=== PATIENT | male | born 1945 | race African-American/Black ===

== ENCOUNTER 2022-09-02 11:23 | Inpatient (IN) | payer MEDICARE, MEDICAID, SELFPAY ==
--- NOTE | ~2022-09-02 | MR_ITS ---
EXAMINATION: MRI BRAIN WITHOUT CONTRAST CLINICAL INFORMATION: Cerebrovascular accident. COMPARISON: CT angiogram of the head and neck 09/02/2022. TECHNIQUE: Multiplanar MR imaging of the brain was performed without contrast. FINDINGS: There is a small focus of restricted diffusion involving the left cerebral peduncle best visualized on axial image 13 of 29 series 4. In addition to this acute finding there are numerous foci of T2 FLAIR signal hyperintensity primarily involving the periventricular white matter that most likely represent a chronic manifestation of small vessel ischemia. A few punctate foci of magnetic susceptibility artifact are visualized near the cortical lees matter of the left parietal lobe that represent chronic microhemorrhages. Intracranial vascular flow voids are grossly maintained. There is no mastoid or middle ear effusion. Mild paranasal sinus mucosal thickening within ethmoid air cells. A chronic deformity of the right parietal bone near the vertex is redemonstrated. Globes and orbits are symmetric. MR/MR head/brain wo con IMPRESSION: There is a small acute lacunar infarct involving the left cerebral peduncle. This finding is superimposed upon numerous chronic small vessel ischemic changes primarily involving the periventricular white matter.
--- NOTE | ~2022-09-02 | CT_ITS ---
EXAMINATION: CT angio head neck stroke CLINICAL INFORMATION: One-day of intermittent slurring of speech. COMPARISON: CT head 09/02/2022. TECHNIQUE: Tape Librarian images were obtained. A CT angiogram of the head and neck was performed in the arterial phase after the intravenous administration of 50 mL Omnipaque 350. Pre and delayed postcontrast images of the head were also obtained. 3D images were processed on an independent workstation under concurrent supervision. Arterial stenoses are measured in accordance with NASCET criteria or similar method if applicable. This CT examination was performed using dose optimization techniques as appropriate, including one or more of the following: Automated exposure control, iterative reconstruction, and adjustment of technique factors (mA and/or kVp) according to patient size (this includes techniques or standardized protocols for targeted exams where dose is matched to indication/reason for exam). Fleischner Society criteria for the followup of incidental pulmonary nodules was implemented if appropriate. Total exam dose-length product 1568 mGy-cm FINDINGS: Head: There is no acute intracranial hemorrhage or abnormal extra-axial collection. Postcontrast images reveal no abnormal intracranial mass or enhancement. No intracranial mass effect or hydrocephalus. There are scattered nonspecific foci of hypoattenuation within the periventricular white matter. No evidence of acute territorial infarct. There are chronic postsurgical changes within the right scalp near the vertex and some well marginated lytic or erosive changes within the calvarium. These findings have remained stable when compared to a CT scan of the head from 07/01/2015. There is no mastoid or middle ear effusion. No active paranasal sinus disease. CT angiogram neck: Scattered atheromatous calcification involves the aortic arch apex. Origins of the major aortic branches are widely patent. Common carotid arteries and carotid bifurcations are normal. No stenosis of the extracranial internal carotid arteries. The cervical segments of the vertebral arteries as well as their origins are patent. CT angiogram head: There is an age indeterminate occlusion within the left P2 segment. There is however reconstitution of contrast filling the distal branches of left posterior cerebral artery. There is mild to moderate narrowing involving the M1 segments of both middle cerebral arteries. Anterior, middle, and posterior cerebral artery complexes are otherwise unremarkable. Intracranial internal carotid arteries are patent. Intradural vertebral artery segments and basilar artery are patent. Other: Soft tissues of the neck including the thyroid gland are normal. No pathologically enlarged cervical lymph nodes. Lung apices are clear. There is no acute osseous finding. CT/CT angio head neck stroke IMPRESSION: There is an age indeterminate occlusion within the left P2 segment. There is also mild to moderate narrowing involving the M1 segments of both middle cerebral arteries, greater on the right. No stenosis of the cervical carotid or vertebral arteries. There are scattered chronic small vessel ischemic changes within the periventricular white matter. No evidence of acute territorial infarct or hemorrhage. No abnormal intracranial mass or enhancement. Of note there are chronic postsurgical changes within the scalp near the vertex and some well marginated lytic or erosive changes within the calvarium. These findings have remained grossly stable when compared to prior CT imaging from 07/01/2015. Correlation with clinical examination is recommended with regard to this finding. This critical result was discussed with Dr. Martel at 1:36 PM on 09/02/2022 and it was ascertained that the content and urgency of the report was understood at the time of direct communication.
--- NOTE | ~2022-09-02 | CT_ITS ---
EXAMINATION: CT HEAD WITHOUT CONTRAST (STROKE PROTOCOL) CLINICAL INFORMATION: Stroke protocol. Slurred speech. COMPARISON: Previous head CT from the June 2015. TECHNIQUE: Contiguous axial imaging was performed from the skull base to vertex without intravenous administration of contrast. This CT examination was performed using dose optimization techniques as appropriate, variously including the following: *Automated exposure control *Adjustment of mA and/or kV according to patient size (this includes techniques or standardized protocols for targeted exams where dose is matched to indication/reason for exam; i.e. extremities or head) *Use of iterative reconstruction technique DLP: 700 mGy-cm FINDINGS: There is no evidence of an extra-axial collection. There is no evidence of intra-axial or extra-axial hemorrhage. The ventricles and extra-axial CSF spaces are appropriate. Rincon-white matter differentiation is normal. No mass, mass effect or infarct. No skull fracture. There is a defect in the posterior parasagittal parietal bone and possibly some involvement of the posterior left parietal bone. This does not appear appreciably changed from 2016 and may represent postsurgical change. There is adjacent increased soft tissue seen in this region. This may be slightly increased from 2016 exam. Clinical correlation recommended. There are small areas of increased attenuation in the subcutaneous fat of the scalp for example overlying the more anterior right parietal bone axial image 30 and left posterior parietal bone axial image 30. This does not appear appreciably changed. Visualized paranasal bases, mastoid air cells and middle ears are clear. CT/CT head for stroke IMPRESSION: No acute intracranial findings. 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 There is increased overlying soft tissue seen in this region which may be slightly increased from previous exam. Question postsurgical change versus destructive bone process. Correlation with clinical history recommended. This critical result was discussed with Dr. Martel at 1208 hours on 09/02/2022. It was ascertained that the content and urgency of the report was understood at the time of direct communication.
--- NOTE | 2022-09-02 11:33 | ECG_ITS ---
Test Reason : ?STROKE Blood Pressure : / mmHG Vent. Rate : 073 BPM Atrial Rate : 085 BPM P-R Int : 224 ms QRS Dur : 090 ms QT Int : 378 ms P-R-T Axes : 000 -05 029 degrees QTc Int : 416 ms Sinus rhythm with 1st degree A-V block with Blocked Premature atrial complexes Nonspecific T wave abnormality Abnormal ECG No previous ECGs available Referred By: Too Martel Electronically Signed By:Burke Hernandez
[2022-09-02 11:36] LABS: Glucose, Whole Blood 346 mg/dL (60-115)
[2022-09-02 11:38] VITALS: BP 169/119; BP 170/113; PULSE 70; PULSE 75; RESP 16; TEMP 36.9; O2SAT 97; O2SAT 98; BMI 31.4
--- NOTE | 2022-09-02 11:40 | ED_ITS ---
HPI - Neuro Symptoms/Deficit General Chief Complaint: Neuro Symptoms/Deficit Stated Complaint: SLURRED SPEECH R SIDE WEAKNESS Time Seen by Provider: 09/02/22 11:33 Source: patient, family and EMS Mode of arrival: EMS Limitations: no limitations History of Present Illness HPI Narrative: Patient was noticed to have slurred speech yesterday but had a few drinks of alcohol, today had a few moments of right sided arm weakness and slurred speech which has all resolved Onset (ago): day(s) Timing confirmed by: spouse Location: speech and right arm Quality: weak Related Data Allergies Allergy/AdvReac Type Severity Reaction Status Date / Time No Known Allergies Allergy Unverified 12/11/19 15:25 [No Known Allergies*] Review of Systems Review of Systems: Yes all other systems are reviewed and are negative Neurologic: Denies Sensory deficit (Neuro) Comments: right sided weakness and slurred speech [facility] Social History Social History Advance Directives: No Advance Directives Information Provided: No Physical Exam Vital Signs: Vital Signs: Last Vital Signs Temp 97.8 F 09/02/22 14:08 Pulse 66 09/02/22 14:08 Resp 17 09/02/22 14:08 BP 168/97 H 09/02/22 14:08 Pulse Ox 97 09/02/22 14:08 O2 Del Method Room Air 09/02/22 14:08 BMI result Body Mass Index 31.4 Const: General: healthy appearing Nutritional Appearance: average body habitus Orientation/consciousness: oriented to person and patient oriented x3 Limitations: no limitations HEENT: Head: Yes normal to inspection Ears: external ears normal General nose exam: Normal external nose present Mouth: Normal oral and palatal mucosa present and oropharynx normal Throat: Yes posterior oropharynx normal Eyes: General: appearance normal, both eyes and all related structures Neck: Other: supple Neck: Yes normal visual inspection Chest: Chest palpation & inspection: normal inspection of the chest Resp: Auscultation: clear to auscultation bilaterally Cardio: Jugular venous distension: no JVD Rate: regular rate Rhythm: regular rhythm Heart sounds: S1 normal heart sound present and S2 normal heart sound present GI: Inspection: Yes normal to inspection Palpation (GI): Soft to palpation, nontender and No hepatosplenomegaly present Auscultation: normal bowel sounds : General: Yes no CVA tenderness Back/Spine/Pelvis: Back: no CVA tenderness Skin: General skin exam: no rashes or lesions noted Neuro: General: oriented to person and patient oriented x3 Cranial nerves: Yes CN's II-XII intact bilaterally Motor exam (neuro): 5/5 motor strength present throughout Sensory Exam: No Sensory deficit (Neuro) Extrem: General: Yes normal to inspection Psych: Appearance: grossly normal Course Reevaluation(s) Reevaluation #1: Patient with NIH stroke scale of 0, 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 Collazo and admit Time: 13:46 Reevaluation #2: I spent 40 minutes of critical care, with interventions, assessments, speaking to patient, consultants, and family. Time: 13:46 Medications Administered Discontinued Medications Generic Name Dose Route Start Last Admin Trade Name Freq PRN Reason Stop Dose Admin Insulin Human Lispro 10 unit 09/02/22 12:48 09/02/22 13:07 Insulin Lispro 100 Unit/Ml 3 Ml Vial SUBCUT 09/02/22 12:49 10 unit ONCE ONE Administration Iohexol 100 ml 09/02/22 13:14 09/02/22 13:14 Iohexol 350 Mg/Ml 100 Ml Infus..Btl IV 09/02/22 13:15 70 ml ONCE ONE Administration Medical Decision Making Differential Diagnosis Differential Diagnoses: The differential diagnosis associated with the presentation includes (CVA, cerebral bleed, brain tumor were all considered) Admission/Observation Consideration of admission/observation: Escalation of care including admission/observation considered (upon arrival this 77 yo male DM, HTN who presents with slurred speach, right arm weakness was considered for admission) Consult Healthcare Provider Management of the patient was discussed with: Hospitalist and Technical Manager (Neuro stroke) Lab Data MDM Lab Attestation statement: I reviewed the patient's lab results. 09/02/22 11:50 09/02/22 11:50 Labs: Lab Results 09/02/22 09/02/22 09/02/22 Range/Units 11:32 11:50 11:50 WBC 5.7 (4.8-10.8) X10*3/uL RBC 5.29 (4.60-5.80) X10*6/uL Hgb 15.9 (14.0-18.0) g/dl Hct 45.2 (42.0-52.0) % MCV 85.4 (80.0-98.0) fL MCH 30.1 (27.0-33.0) pg MCHC 35.2 (31.0-36.0) g/dl RDW 12.0 (11.0-16.0) % Plt Count 163 (160-400) X10*3/uL MPV 11.7 (9.4-12.4) fL Immature Gran % (Auto) 0.4 (0.0-0.4) % Neut % (Auto) 67.6 (45-73) % Lymph % (Auto) 24.5 (20-40) % [place] % (Auto) 5.4 (2-11) % Eos % (Auto) 1.6 (0-4) % Baso % (Auto) 0.5 (0-2) % Lymph # (Auto) 1.4 (1.2-4.9) X10*3/uL [place] # (Auto) 0.3 (0.1-1.2) X10*3/uL Eos # (Auto) 0.1 (0.0-0.4) X10*3/uL Baso # (Auto) 0.0 (0.0-0.2) X10*3/uL Abs Immat Gran (auto) 0.02 (0.00-0.03) X10*3/uL Absolute Neuts (auto) 3.9 (2.0-8.3) x10*3/uL Absolute Nucleated RBC 0.000 (0.0-0.012) X10*3/uL Nucleated RBC % (auto) 0.0 (0.0-0.2) /100WBC Sodium 138 (135-145) mmol/L Potassium 3.8 (3.3-5.1) mmol/L Chloride 103 (96-108) mmol/L Carbon Dioxide 25 (22-29) mmol/L Anion Gap 14 (12-20) BUN 11 (9-16) mg/dL Creatinine 1.07 (0.5-1.4) mg/dL Estim Creat Clear Calc 72.5 Estimated GFR > 60 POC Glucose 346 H (60-115) mg/dL Random Glucose 343 H (60-115) mg/dL Estimat Average Glucose mg/dL Hemoglobin A1c % % Calcium 9.3 (8.4-10.2) mg/dL Troponin I High Sens (<3.5-35.0) ng/L Ethyl Alcohol < 10 mg/dL 09/02/22 09/02/22 09/02/22 Range/Units 11:50 11:50 14:21 WBC (4.8-10.8) X10*3/uL RBC (4.60-5.80) X10*6/uL Hgb (14.0-18.0) g/dl Hct (42.0-52.0) % MCV (80.0-98.0) fL MCH (27.0-33.0) pg MCHC (31.0-36.0) g/dl RDW (11.0-16.0) % Plt Count (160-400) X10*3/uL MPV (9.4-12.4) fL Immature Gran % (Auto) (0.0-0.4) % Neut % (Auto) (45-73) % Lymph % (Auto) (20-40) % [place] % (Auto) (2-11) % Eos % (Auto) (0-4) % Baso % (Auto) (0-2) % Lymph # (Auto) (1.2-4.9) X10*3/uL [place] # (Auto) (0.1-1.2) X10*3/uL Eos # (Auto) (0.0-0.4) X10*3/uL Baso # (Auto) (0.0-0.2) X10*3/uL Abs Immat Gran (auto) (0.00-0.03) X10*3/uL Absolute Neuts (auto) (2.0-8.3) x10*3/uL Absolute Nucleated RBC (0.0-0.012) X10*3/uL Nucleated RBC % (auto) (0.0-0.2) /100WBC Sodium (135-145) mmol/L Potassium (3.3-5.1) mmol/L Chloride (96-108) mmol/L Carbon Dioxide (22-29) mmol/L Anion Gap (12-20) BUN (9-16) mg/dL Creatinine (0.5-1.4) mg/dL Estim Creat Clear Calc Estimated GFR POC Glucose 249 H (60-115) mg/dL Random Glucose (60-115) mg/dL Estimat Average Glucose 312 mg/dL Hemoglobin A1c % 12.5 % Calcium (8.4-10.2) mg/dL Troponin I High Sens < 2.7 (<3.5-35.0) ng/L Ethyl Alcohol mg/dL Independent Interpretation I performed an independent interpretation of an: EKG and CT Scan (brain: no bl eed) Interpretation: sinus 75 with APC, no st or twave changes Radiology Impression Discussion of test interpretation with radiology: I discussed test interpretation with the radiologist Independent Historian Clinical information obtained from an independent historian. History obtained from or confirmed by: Spouse and EMS Chronic Conditions Patient?s care impacted by: Diabetes and Hypertension NIH Stroke Scale Internal: Initial- Upon Arrival Level of Consciousness: Alert Level of Consciousness Questions: Answers both questions correctly Level of Consciousness Commands: Performs both tasks correctly Best Gaze: Normal Visual: No visual loss Facial Palsy: Normal Motor Arm (Right): No drift Motor Arm (Left): No drift Motor Leg (Right): No drift Motor Leg (Left): No drift Limb Ataxia: Absent Sensory: Normal Best Language: No aphasia Dysarthia: Normal Extinction and Inattention: No abnormality Score: 0 Discharge Plan Discharge Clinical Impression: Transient cerebral ischemia Patient Disposition: Admitted As Inpatient
[2022-09-02 12:06] LABS: MANUAL DIFF FLAG NO
[2022-09-02 12:20] LABS: Basophils Percent Auto 0.5 % (0-2); Eosinophils Absolute Auto 0.1 X10*3/uL (0.0-0.4); Eosinophils Percent Auto 1.6 % (0-4); Hematocrit 45.2 % (42.0-52.0); Hemoglobin 15.9 g/dl (14.0-18.0); Imm Gran Abs Auto 0.02 X10*3/uL (0.00-0.03); Imm Gran Pct Auto 0.4 % (0.0-0.4); Lymphocytes Absolute Auto 1.4 X10*3/uL (1.2-4.9); Lymphocytes Percent Auto 24.5 % (20-40); Mean Corpuscular HGB Conc 35.2 g/dl (31.0-36.0); Mean Corpuscular Hemoglobin 30.1 pg (27.0-33.0); Mean Corpuscular Volume 85.4 fL (80.0-98.0); Mean Platelet Volume 11.7 fL (9.4-12.4); Monocytes Absolute Auto 0.3 X10*3/uL (0.1-1.2); Monocytes Percent Auto 5.4 % (2-11); Neutrophils Absolute Auto 3.9 x10*3/uL (2.0-8.3); Neutrophils Percent Auto 67.6 % (45-73); Platelet Count 163 X10*3/uL (160-400); Red Blood Count 5.29 X10*6/uL (4.60-5.80); White Blood Count 5.7 X10*3/uL (4.8-10.8)
[2022-09-02 12:32] LABS: Anion Gap 14 (12-20); Blood Urea Nitrogen 11 mg/dL (9-16); Calcium 9.3 mg/dL (8.4-10.2); Carbon Dioxide 25 mmol/L (22-29); Chloride 103 mmol/L (96-108); Creatinine Clr Calc Pharmacy 72.5; Estimated Glomerular Filt Rate > 60; Ethanol < 10 mg/dL; Glucose Random 343 mg/dL (60-115); Potassium 3.8 mmol/L (3.3-5.1); Sodium 138 mmol/L (135-145)
[2022-09-02 12:42] VITALS: BP 163/97
[2022-09-02 12:56] LABS: Troponin-I High Sensitivity < 2.7 ng/L (<3.5-35.0)
[2022-09-02] MEDS: Insulin Lispro 100 UNIT/ML 3 ML VIAL 10 UNIT SUBCUT (13:07)
[2022-09-02] MEDS: iohexoL 350 MG/ML 100 ML INFUS..BTL IV (13:14)
[2022-09-02 14:08] VITALS: BP 168/97; PULSE 66; RESP 17; TEMP 36.6; O2SAT 97
[2022-09-02 14:25] LABS: Glucose, Whole Blood 249 mg/dL (60-115)
[2022-09-02 15:06] LABS: Estimated Average Glucose 312 mg/dL; Hemoglobin A1c % 12.5 %
--- NOTE | 2022-09-02 15:22 | P.HPHOSP_ITS ---
History of Present Illness Date of Service: 09/02/22 Attending physician on admission: [facility] Chief Complaint: slurred speech 77-year-old male with history of uncontrolled type 2 diabetes noncompliant with medications, hypertension, and who is a current some day smoker presents to the ED earlier today for evaluation as stroke-like symptoms. Reports yesterday was noted to have an episode of slurred speech that he feels resolved. In speaking with his family who are present on exam they feel he has had intermittent right sided facial droop and slurred speech for about a month. This morning symptoms recurred with right upper extremity weakness that lasted for several minutes before resolving [place] and again experienced right-sided facial droop and slurred speech which persists in the ER. He has been noncompliant with follow- up with his PCP and stops taking the metformin and insulin he was previously prescribed. He is unsure of what his last A1c was but states his glucose levels have been between 300-400. He also tells me he smokes cigarettes on the weekend when consuming alcohol, he is a social drinker, states 1 pack of cigarettes will last him 1-2 weeks. He does not use any illicit drugs. On arrival, patient hypertensive to 170/113, vital signs otherwise stable. Hematology studies are unremarkable. Renal function is normal, electrolyte levels are normal. Glucose on arrival 343, given 10 units Humalog with improvement in glucose to 249. Hemoglobin A1c added on and is 12.5%. Head CT is negative for any acute intracranial findings but shows stable bone loss of the right posterior parasagittal parietal bone with increased overlying soft tissue seen in the region slightly increased from prior exam possibly related to postsurgical change versus destructive bony process. Head/neck CTA shows an age-indeterminate occlusion within the left P2 segment as well as a [id number] narrowing involving the M1 segments of both middle cerebral arteries greater on the right side. No stenosis of the carotid or vertebral arteries. Other stable chronic findings. Review of Systems Review of Systems: General: No fevers, malaise, unintentional weight loss HEENT: No blurred vision, diplopia. No sore throat, nasal congestion, rhinorrhea, sinus pain, ear pain Cardiovascular: No chest pain, palpitations, or leg edema Respiratory: No shortness of breath, wheezing, cough GI: No abdominal pain, nausea, vomiting, diarrhea, constipation, melena, hematochezia : No dysuria, hematuria, increased urinary frequency, decreased urinary output MSK: No myalgia, back pain Neuro: No headaches, paresthesias. +right facial droop, +slurred speech, +RUE weakness Skin: No rashes or lesions [facility] Medical History (Updated 09/02/22 @ 15:49 by DL Krause) Acute CVA (cerebrovascular accident) Current smoker on some days HTN (hypertension) Type 2 diabetes mellitus Social History Alcohol intake: current Alcohol intake frequency: a few times a week Patient Tobacco Use Status: Current someday Tobacco user Smoked in Last 30 Days: Yes Use of substances other than those prescribed or required for medical reasons: No Advance Directives: No Advance Directives Information Provided: No Meds Allergies Allergy/AdvReac Type Severity Reaction Status Date / Time No Known Allergies Allergy Unverified 12/11/19 15:25 [No Known Allergies*] Active Medications: Current Medications Acetaminophen (Acetaminophen 325 Mg Tablet) 650 mg PO Q6H PRN PRN Reason: Pain, Mild (Pain Scale 1-3) Aspirin (Aspirin 325 Mg Tablet) 325 mg PO DAILY [facility] Atorvastatin Calcium (Atorvastatin Calcium 80 Mg Tablet) 80 mg PO DAILY [facility] Docusate Sodium (Docusate Sodium 100 Mg Capsule) 100 mg PO DAILY PRN PRN Reason: Constipation Enoxaparin Sodium (Enoxaparin Sodium 40 Mg/0.4 Ml Syringe) 40 mg SUBCUT Q24H [facility] Glucose (Glucose Gel 15 Gm Gel..Gram.) 15 gm PO Q15M PRN; Protocol PRN Reason: per Hypoglycemia Standing Ord. Dextrose (D10) 250 mls @ 750 mls/hr IV Q15M PRN; Protocol PRN Reason: per Hypoglycemia Standing Ord. Insulin Human Lispro (Insulin Lispro 100 Unit/Ml 3 Ml Vial) 0 unit SUBCUT QID [facility]; Protocol Ondansetron HCl (Ondansetron Hcl 4 Mg/2 Ml Vial) 4 mg IVPUSH Q8H PRN PRN Reason: Nausea and Vomiting Sodium Chloride (0.9 % Sodium Chloride Flush 3 Ml Syringe) 3 ml IVFLUSH QSHIFT [facility] Home Medications Medication Instructions Recorded Confirmed Last Taken Type aspirin 81 mg tablet,delayed 81 mg PO DAILY 09/02/22 09/02/22 Unknown History release Physical Exam Vital Signs and Narrative: Vital Signs: Last Vital Signs Temp 97.8 F 09/02/22 14:08 Pulse 66 09/02/22 14:08 Resp 17 09/02/22 14:08 BP 168/97 H 09/02/22 14:08 Pulse Ox 97 09/02/22 14:08 O2 Del Method Room Air 09/02/22 14:08 BMI result Body Mass Index 31.4 Constitutional - Awake and Alert, No apparent distress Eyes - PERRLA, EOMI Cardiovascular - S1S2, RRR, No edema Respiratory - Normal lung expansion, Normal respiratory effort, No respiratory distress, CTA bilaterally Gastrointestinal - NT / ND; +BS; No rebound or guarding Extremities - no calf tenderness bilaterally, no swelling Skin - Warm/Dry Neurological - Alert & oriented x3, slight loss of right naso-labial fold with slurred speech, otherwise CN II-XII in tact, 5/5 strength BUE and BLE. Finger to nose testing normal Psychological - Appropriate affect Results Labs 09/02/22 11:50 09/02/22 11:50 Labs: Laboratory Results - last 24 hr 09/02/22 09/02/22 09/02/22 11:32 11:50 11:50 MCV 85.4 MCH 30.1 MCHC 35.2 RDW 12.0 Plt Count 163 MPV 11.7 Immature Gran % (Auto) 0.4 Neut % (Auto) 67.6 Lymph % (Auto) 24.5 [place] % (Auto) 5.4 Eos % (Auto) 1.6 Baso % (Auto) 0.5 Lymph # (Auto) 1.4 [place] # (Auto) 0.3 Eos # (Auto) 0.1 Baso # (Auto) 0.0 Abs Immat Gran (auto) 0.02 Absolute Neuts (auto) 3.9 Absolute Nucleated RBC 0.000 Nucleated RBC % (auto) 0.0 Anion Gap 14 Estim Creat Clear Calc 72.5 Estimated GFR > 60 POC Glucose 346 H Random Glucose 343 H Estimat Average Glucose Hemoglobin A1c % Calcium 9.3 Troponin I High Sens Ethyl Alcohol < 10 09/02/22 09/02/22 09/02/22 11:50 11:50 14:21 MCV MCH MCHC RDW Plt Count MPV Immature Gran % (Auto) Neut % (Auto) Lymph % (Auto) [place] % (Auto) Eos % (Auto) Baso % (Auto) Lymph # (Auto) [place] # (Auto) Eos # (Auto) Baso # (Auto) Abs Immat Gran (auto) Absolute Neuts (auto) Absolute Nucleated RBC Nucleated RBC % (auto) Anion Gap Estim Creat Clear Calc Estimated GFR POC Glucose 249 H Random Glucose Estimat Average Glucose 312 Hemoglobin A1c % 12.5 Calcium Troponin I High Sens < 2.7 Ethyl Alcohol Imaging Radiologist's Impressions: Impressions Head CT 09/02/22 12:01 IMPRESSION: No acute intracranial findings. 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 There is increased overlying soft tissue seen in this region which may be slightly increased from previous exam. Question postsurgical change versus destructive bone process. Correlation with clinical history recommended. This critical result was discussed with Dr. Martel at 1208 hours on 09/02/2022. It was ascertained that the content and urgency of the report was understood at the time of direct communication. Head/Neck CTA 09/02/22 13:13 IMPRESSION: There is an age indeterminate occlusion within the left P2 segment. There is also mild to moderate narrowing involving the M1 segments of both middle cerebral arteries, greater on the right. No stenosis of the cervical carotid or vertebral arteries. There are scattered chronic small vessel ischemic changes within the periventricular white matter. No evidence of acute territorial infarct or hemorrhage. No abnormal intracranial mass or enhancement. Of note there are chronic postsurgical changes within the scalp near the vertex and some well marginated lytic or erosive changes within the calvarium. These findings have remained grossly stable when compared to prior CT imaging from 07/01/2015. Correlation with clinical examination is recommended with regard to this finding. This critical result was discussed with Dr. Martel at 1:36 PM on 09/02/2022 and it was ascertained that the content and urgency of the report was understood at the time of direct communication. Assessment and Plan (1) Acute CVA (cerebrovascular accident): Status: Acute Plan 77-year-old male with history of uncontrolled type 2 diabetes noncompliant with medications, hypertension, and who is a current some day smoker admitted to acute CVA #Acute CVA -Head CT negative for acute intracranial abnormality but head/neck CTA shows an age-indeterminate occlusion within the left P2 segment as well as [id number] narrowing involving the M1 segments of both middle cerebral arteries greater on the right. Outside of window for tPA -MRI brain ordered -echocardiogram ordered -given 325 mg aspirin. Continue 81 mg aspirin daily -initiate atorvastatin 80 mg daily -lipid panel pending -bedside nursing swallow eval pending, keep NPO for now -stroke Education -counseled on smoking cessation as well as better glucose control -Neurology consulted -PT/OT/WILDLIFE VETERINARIAN consulted # uncontrolled type 2 diabetes -hemoglobin A1c 12.5% -diabetic diet -POC glucose -Humalog on sliding scale, may need additional coverage with basal insulin # hypertension -hold antihypertensives for now in setting of acute CVA # cigarette smoker -not an everyday smoker, does not require NRT -counseled on smoking cessation DVT prophylaxis-Lovenox Full code Patient requires inpatient stay at least 2 midnights for management of acute CVA Time Spent With Patient Time: Total time managing care of this patient today ____ minutes. Quality Stroke Does the patient have a stroke diagnosis?: Yes Reason for No Anti-thrombotic by Day Two: Drug treatment not indicated VTE Prior VTE?: No VTE Risk Level:: Medical - moderate - high VTE Device Contraindication: Treatment Not Indicated VTE Drug Contraindication: N/A - Med Ordered
[2022-09-02] MEDS: Aspirin 325 MG TABLET PO (15:40)
[2022-09-02] MEDS: Enoxaparin Sodium 40 MG/0.4 ML SYRINGE SUBCUT (15:41)
[2022-09-02] MEDS: 0.9 % Sodium Chloride Flush 3 ML SYRINGE IVFLUSH (15:45)
--- NOTE | 2022-09-02 15:52 | PHA.MEDREC ---
Pharmacy Consult ? Medication Reconciliation Pharmacy has completed the medication reconciliation. spoke with patient and family. They say he is only on aspirin 81mg currently. He did not take it today.
[2022-09-02 16:38] VITALS: BP 150/103; PULSE 68; RESP 16; TEMP 37; O2SAT 96
--- NOTE | 2022-09-02 17:13 | PM.NEUROCN ---
History of Present Illness Data of Consult Service Date: 09/02/22 Primary Care Provider: Nonstaff Physician HPI Reason for consult: Slurred speech 77 years old man with hypertension and diabetes who according to his family was not behaving normally for about 4 weeks. The day before coming to hospital he was noted to be confused and speaking gibberish or something was wrong about his speech. Speech has not gotten back to normal when I saw him. There was no history of any recent trauma or alcohol use. There was no focal weakness. Review of Systems Review of Systems: No recent cold or flu-like PMFSH Past Medical History Medical History (Updated 09/02/22 @ 15:49 by DL Krause) Acute CVA (cerebrovascular accident) Current smoker on some days HTN (hypertension) Type 2 diabetes mellitus Social History Social History Alcohol intake: current Alcohol intake frequency: a few times a week Patient Tobacco Use Status: Current someday Tobacco user Smoked in Last 30 Days: Yes Use of substances other than those prescribed or required for medical reasons: No Advance Directives: No Advance Directives Information Provided: No Meds Allergies Allergy/AdvReac Type Severity Reaction Status Date / Time No Known Allergies Allergy Unverified 12/11/19 15:25 [No Known Allergies*] Active Medications: Current Medications Acetaminophen (Acetaminophen 325 Mg Tablet) 650 mg PO Q6H PRN PRN Reason: Pain, Mild (Pain Scale 1-3) Artificial Tears (Artificial Tears 15 Ml Drops) 1 drop EYE-BOTH Q4H PRN PRN Reason: Dry Eyes Aspirin (Aspirin 325 Mg Tablet) 325 mg PO DAILY [facility] Last Admin: 09/02/22 15:40 Dose: 325 mg Aspirin (Aspirin Enteric Coated 81 Mg Tablet.) 81 mg PO DAILY [facility] Atorvastatin Calcium (Atorvastatin Calcium 80 Mg Tablet) 80 mg PO DAILY [facility] Docusate Sodium (Docusate Sodium 100 Mg Capsule) 100 mg PO DAILY PRN PRN Reason: Constipation Enoxaparin Sodium (Enoxaparin Sodium 40 Mg/0.4 Ml Syringe) 40 mg SUBCUT Q24H [facility] Last Admin: 09/02/22 15:41 Dose: 40 mg Glucose (Glucose Gel 15 Gm Gel..Gram.) 15 gm PO Q15M PRN; Protocol PRN Reason: per Hypoglycemia Standing Ord. Dextrose (D10) 250 mls @ 750 mls/hr IV Q15M PRN; Protocol PRN Reason: per Hypoglycemia Standing Ord. Insulin Human Lispro (Insulin Lispro 100 Unit/Ml 3 Ml Vial) 0 unit SUBCUT QIDACHS [facility]; Protocol Ondansetron HCl (Ondansetron Hcl 4 Mg/2 Ml Vial) 4 mg IVPUSH Q8H PRN PRN Reason: Nausea and Vomiting Sodium Chloride (0.9 % Sodium Chloride Flush 3 Ml Syringe) [facility] Last Admin: 09/02/22 15:45 Dose: 3 ml Home Medications Medication Instructions Recorded Confirmed Last Taken Type aspirin 81 mg tablet,delayed 81 mg PO DAILY 09/02/22 09/02/22 Unknown History release Physical Exam Vital Signs: Vital Signs: Last Vital Signs Temp 98.6 F 09/02/22 16:38 Pulse 68 09/02/22 16:38 Resp 16 09/02/22 16:38 BP 150/103 H 09/02/22 16:38 Pulse Ox 96 09/02/22 16:38 O2 Del Method Room Air 09/02/22 16:38 BMI result Body Mass Index 31.4 Neuro: Other: Alert and awake with slightly decreased spontaneity and fluency of speech. He is able to name simple objects repeats simple sentences and read. He is following commands. Comprehension is intact. Pupils are equal and reactive to light. Visual kyle are okay. Face is symmetrical. There is no pronator drift. Deep tendon reflexes are trace to absent with flexor plantars. Speech is slightly dysphasic Results Labs 09/02/22 11:50 09/02/22 11:50 Labs: Short CBC 09/02/22 Range/Units 11:50 WBC 5.7 (4.8-10.8) X10*3/uL Hgb 15.9 (14.0-18.0) g/dl Hct 45.2 (42.0-52.0) % Plt Count 163 (160-400) X10*3/uL BMP 09/02/22 11:50 Sodium 138 Potassium 3.8 Chloride 103 Carbon Dioxide 25 BUN 11 Creatinine 1.07 Calcium 9.3 CTA revealed left P2 stenosis and bilateral middle cerebral artery mild stenosis and microvascular ischemic changes Assessment and Plan (1) Acute CVA (cerebrovascular accident): Status: Acute 77 years old man with uncontrolled hypertension and diabetes who came to hospital with new onset of difficulty speaking and according to family also confusion. He said that he remembered what ever happened but was unable to clearly describe it. His examination revealed mild aphasia/dysarthria. Otherwise there was no focal finding. 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 Likely etiology of his illness was an ischemic stroke, which could be left thalamic. An MRI of brain without contrast is recommended. Otherwise I recommend aspirin 81 mg daily with Plavix 75 mg daily, blood pressure control and statin. Tox screen is also recommended Time Spent With Patient Time: Total time managing care of this patient today ____ minutes. Procedures Date of Service Date of Service: 09/02/22
[2022-09-02 17:24] LABS: Prothrombin Time 10.9 SEC (10.0-13.1)
[2022-09-02 17:27] LABS: Partial Thromboplastin Time 33.6 SEC (26.0-36.4)
[2022-09-02 18:37] VITALS: BP 156/107; PULSE 72; RESP 18; TEMP 36.9; O2SAT 96
[2022-09-02 18:39] LABS: Glucose, Whole Blood 298 mg/dL (60-115)
[2022-09-02] MEDS: Insulin Lispro 100 UNIT/ML 3 ML VIAL SUBCUT ×2 (18:51→21:42)
[2022-09-02 18:54] VITALS: BP 157/89; PULSE 72
[2022-09-02] MEDS: Clopidogrel Bisulfate 75 MG TABLET PO (19:09)
[2022-09-02 21:42] LABS: Glucose, Whole Blood 259 mg/dL (60-115)
[2022-09-03 06:54] LABS: MANUAL DIFF FLAG NO
[2022-09-03 06:56] LABS: Basophils Percent Auto 0.7 % (0-2); Eosinophils Absolute Auto 0.1 X10*3/uL (0.0-0.4); Eosinophils Percent Auto 2.3 % (0-4); Hemoglobin 16.1 g/dl (14.0-18.0); Imm Gran Abs Auto 0.03 X10*3/uL (0.00-0.03); Imm Gran Pct Auto 0.5 % (0.0-0.4); Lymphocytes Absolute Auto 1.6 X10*3/uL (1.2-4.9); Lymphocytes Percent Auto 26.2 % (20-40); Mean Corpuscular HGB Conc 35.8 g/dl (31.0-36.0); Mean Corpuscular Hemoglobin 31.1 pg (27.0-33.0); Mean Corpuscular Volume 86.9 fL (80.0-98.0); Mean Platelet Volume 11.9 fL (9.4-12.4); Monocytes Absolute Auto 0.4 X10*3/uL (0.1-1.2); Neutrophils Absolute Auto 3.9 x10*3/uL (2.0-8.3); Neutrophils Percent Auto 64.3 % (45-73); Platelet Count 162 X10*3/uL (160-400); Red Blood Count 5.18 X10*6/uL (4.60-5.80); Red Cell Distribution Width 12.2 % (11.0-16.0)
[2022-09-03 06:58] VITALS: BP 141/93; PULSE 79; RESP 18; TEMP 36.9; O2SAT 94
--- NOTE | 2022-09-03 07:20 | P.PNIM_ITS ---
Subjective Subjective Date of Service: 09/03/22 Interval History: f/u on cva interval history: has some residual dysarthria, mild mouth droop, no focal weakness Physical Exam Vital Signs: Vital Signs: Last Vital Signs Temp 98.5 F 09/03/22 06:58 Pulse 79 09/03/22 06:58 Resp 18 09/03/22 06:58 BP 141/93 H 09/03/22 06:58 Pulse Ox 94 09/03/22 06:58 O2 Del Method Room Air 09/03/22 06:58 BMI result Body Mass Index 31.4 Const: Other: General: AO X 3, no acute distress Resp: CTA bilateral CVS: S1,S2,RRR GI: +BS, NT, no distention Skin: No rash Neuro: motor grossly intact Psych: appropriate affect Objective Data Active Medications Acetaminophen (Acetaminophen 325 Mg Tablet) 650 mg PO Q6H PRN PRN Reason: Pain, Mild (Pain Scale 1-3) Artificial Tears (Artificial Tears 15 Ml Drops) 1 drop EYE-BOTH Q4H PRN PRN Reason: Dry Eyes Aspirin (Aspirin 325 Mg Tablet) 325 mg PO DAILY [facility] Last Admin: 09/02/22 15:40 Dose: 325 mg Documented By: TE Aspirin (Aspirin Enteric Coated 81 Mg Tablet.) 81 mg PO DAILY [facility] Atorvastatin Calcium (Atorvastatin Calcium 80 Mg Tablet) 80 mg PO DAILY [facility] Clopidogrel Bisulfate (Clopidogrel Bisulfate 75 Mg Tablet) 75 mg PO DAILY [facility] Last Admin: 09/02/22 19:09 Dose: 75 mg Documented By: LASHELL Docusate Sodium (Docusate Sodium 100 Mg Capsule) 100 mg PO DAILY PRN PRN Reason: Constipation Enoxaparin Sodium (Enoxaparin Sodium 40 Mg/0.4 Ml Syringe) 40 mg SUBCUT Q24H [facility] Last Admin: 09/02/22 15:41 Dose: 40 mg Documented By: TE Glucose (Glucose Gel 15 Gm Gel..Gram.) 15 gm PO Q15M PRN; Protocol PRN Reason: per Hypoglycemia Standing Ord. Dextrose (D10) 250 mls @ 750 mls/hr IV Q15M PRN; Protocol PRN Reason: per Hypoglycemia Standing Ord. Insulin Human Lispro (Insulin Lispro 100 Unit/Ml 3 Ml Vial) 0 unit SUBCUT QIDACHS [facility]; Protocol Last Admin: 09/02/22 21:42 Dose: 6 unit Documented By: SHERIF Ondansetron HCl (Ondansetron Hcl 4 Mg/2 Ml Vial) 4 mg IVPUSH Q8H PRN PRN Reason: Nausea and Vomiting Sodium Chloride (0.9 % Sodium Chloride Flush 3 Ml Syringe) 3 ml IVFLUSH QSHIFT [facility] Last Admin: 09/03/22 00:51 Dose: Not Given Documented By: SHERIF Non-Admin Reason: Previously Administered Labs 09/03/22 06:43 09/02/22 11:50 Labs: Laboratory Results - last 24 hr 09/02/22 09/02/22 09/02/22 11:32 11:50 11:50 MCV 85.4 MCH 30.1 MCHC 35.2 RDW 12.0 Plt Count 163 MPV 11.7 Immature Gran % (Auto) 0.4 Neut % (Auto) 67.6 Lymph % (Auto) 24.5 Barry % (Auto) 5.4 Eos % (Auto) 1.6 Baso % (Auto) 0.5 Lymph # (Auto) 1.4 Barry # (Auto) 0.3 Eos # (Auto) 0.1 Baso # (Auto) 0.0 Abs Immat Gran (auto) 0.02 Absolute Neuts (auto) 3.9 Absolute Nucleated RBC 0.000 Nucleated RBC % (auto) 0.0 PT INR APTT Anion Gap 14 Estim Creat Clear Calc 72.5 Estimated GFR > 60 POC Glucose 346 H Random Glucose 343 H Estimat Average Glucose Hemoglobin A1c % Calcium 9.3 Troponin I High Sens Ethyl Alcohol < 10 09/02/22 09/02/22 09/02/22 11:50 11:50 14:21 MCV MCH MCHC RDW Plt Count MPV Immature Gran % (Auto) Neut % (Auto) Lymph % (Auto) Barry % (Auto) Eos % (Auto) Baso % (Auto) Lymph # (Auto) Barry # (Auto) Eos # (Auto) Baso # (Auto) Abs Immat Gran (auto) Absolute Neuts (auto) Absolute Nucleated RBC Nucleated RBC % (auto) PT INR APTT Anion Gap Estim Creat Clear Calc Estimated GFR POC Glucose 249 H Random Glucose Estimat Average Glucose 312 Hemoglobin A1c % 12.5 Calcium Troponin I High Sens < 2.7 Ethyl Alcohol 09/02/22 09/02/22 09/02/22 17:09 18:34 21:37 MCV MCH MCHC RDW Plt Count MPV Immature Gran % (Auto) Neut % (Auto) Lymph % (Auto) Barry % (Auto) Eos % (Auto) Baso % (Auto) Lymph # (Auto) Barry # (Auto) Eos # (Auto) Baso # (Auto) Abs Immat Gran (auto) Absolute Neuts (auto) Absolute Nucleated RBC Nucleated RBC % (auto) PT 10.9 INR 1.0 APTT 33.6 Anion Gap Estim Creat Clear Calc Estimated GFR POC Glucose 298 H 259 H Random Glucose Estimat Average Glucose Hemoglobin A1c % Calcium Troponin I High Sens Ethyl Alcohol 09/03/22 06:43 MCV 86.9 MCH 31.1 MCHC 35.8 RDW 12.2 Plt Count 162 MPV 11.9 Immature Gran % (Auto) 0.5 H Neut % (Auto) 64.3 Lymph % (Auto) 26.2 Barry % (Auto) 6.0 Eos % (Auto) 2.3 Baso % (Auto) 0.7 Lymph # (Auto) 1.6 Barry # (Auto) 0.4 Eos # (Auto) 0.1 Baso # (Auto) 0.0 Abs Immat Gran (auto) 0.03 Absolute Neuts (auto) 3.9 Absolute Nucleated RBC 0.000 Nucleated RBC % (auto) 0.0 PT INR APTT Anion Gap Estim Creat Clear Calc Estimated GFR POC Glucose Random Glucose Estimat Average Glucose Hemoglobin A1c % Calcium Troponin I High Sens Ethyl Alcohol Assessment and Plan (1) Acute CVA (cerebrovascular accident): Status: Acute Plan 77-year-old male with history of uncontrolled type 2 diabetes noncompliant with medications, hypertension, and who is a current some day smoker admitted to acute CVA #Acute CVA manifested by slur speech, mouth droop -Head CT negative for acute intracranial abnormality but head/neck CTA shows an age-indeterminate occlusion within the left P2 segment as well as [id number] te narrowing involving the M1 segments of both middle cerebral arteries greater on the right. Outside of window for tPA. Neuro recommends ASA, drug screen, and MRI, Lipitor PT/OT/ENTRY TECH tomorrow. # uncontrolled type 2 diabetes--he has not been taking meds for years -hemoglobin A1c 12.5% -diabetic diet -POC glucose -Start Lantus 10, pre meal insulin 5 and SSI, # hypertension -hold antihypertensives for now in setting of acute CVA # cigarette smoker -not an everyday smoker, does not require NRT -counseled on smoking cessation DVT prophylaxis-Lovenox Full code Need for inpatient: management of CVA Time Spent With Patient Time: Total time managing care of this patient today ____ minutes. Quality Stroke Does the patient have a stroke diagnosis?: Yes Reason for No Anti-thrombotic by Day Two: Drug treatment not indicated VTE Prior VTE?: No VTE Risk Level:: Medical - moderate - high VTE Device Contraindication: Treatment Not Indicated VTE Drug Contraindication: N/A - Med Ordered
[2022-09-03 07:22] LABS: Anion Gap 16 (12-20); Blood Urea Nitrogen 11 mg/dL (9-16); Calcium 8.9 mg/dL (8.4-10.2); Carbon Dioxide 25 mmol/L (22-29); Chloride 101 mmol/L (96-108); Cholesterol 213 mg/dL; Creatinine Clr Calc Pharmacy 79.2; Estimated Glomerular Filt Rate > 60; Glucose Random 308 mg/dL (60-115); HDL Cholesterol 54 mg/dL; LDL Cholesterol Calculated 94 mg/dl; Potassium 3.5 mmol/L (3.3-5.1); Sodium 138 mmol/L (135-145); Triglycerides 326 mg/dL
[2022-09-03 07:38] LABS: Glucose, Whole Blood 386 mg/dL (60-115)
[2022-09-03 08:00] VITALS: BP 140/88; PULSE 75; RESP 20; TEMP 36.4; O2SAT 97
[2022-09-03 08:11] LABS: Glucose, Whole Blood 391 mg/dL (60-115)
[2022-09-03] MEDS: Insulin Lispro 100 UNIT/ML 3 ML VIAL SUBCUT ×7 (08:30→21:03)
[2022-09-03] MEDS: Aspirin Enteric Coated 81 MG TABLET.DR PO (08:31)
[2022-09-03] MEDS: Insulin Glargine,Hum.rec.anlog 100 UNIT/ML 10 ML VIAL 10 UNIT SUBCUT (08:31)
[2022-09-03] MEDS: Clopidogrel Bisulfate 75 MG TABLET PO (08:31)
[2022-09-03] MEDS: 0.9 % Sodium Chloride Flush 3 ML SYRINGE IVFLUSH ×3 (08:31→21:05)
[2022-09-03] MEDS: Atorvastatin Calcium 80 MG TABLET PO (08:31)
[2022-09-03 11:12] VITALS: BP 146/83; PULSE 58; RESP 20; TEMP 36.7; O2SAT 97
[2022-09-03 11:32] LABS: Glucose, Whole Blood 233 mg/dL (60-115)
[2022-09-03] MEDS: Enoxaparin Sodium 40 MG/0.4 ML SYRINGE SUBCUT (14:38)
[2022-09-03 15:24] VITALS: BP 143/83; PULSE 61; RESP 18; TEMP 36.5; O2SAT 96
[2022-09-03 15:43] LABS: Glucose, Whole Blood 174 mg/dL (60-115)
--- NOTE | 2022-09-03 16:11 | MHC.CM.PN ---
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
[2022-09-03 16:24] LABS: Amphetamine Screen Urine Not Detected (Not Detect); Barbiturates, Urine Not Detected (Not Detect); Benzodiazepines Screen Urine Not Detected (Not Detect); Cannabinoid Screen Urine Not Detected (Not Detect); Cocaine Screen Urine Not Detected (Not Detect); Fentanyl, urine Not Detected (Not Detect); Opiate Screen Urine Not Detected (Not Detect); Phencyclidine Screen Urine Not Detected (Not Detect)
[2022-09-03 20:00] VITALS: BP 180/106; PULSE 75; RESP 18; TEMP 36.2; O2SAT 99
[2022-09-03 20:38] LABS: Glucose, Whole Blood 304 mg/dL (60-115)
[2022-09-03 23:12] VITALS: BP 163/102; PULSE 63; RESP 18; TEMP 36; O2SAT 97
[2022-09-04 04:00] VITALS: BP 144/89; PULSE 64; RESP 178; TEMP 37.1; O2SAT 97
--- NOTE | 2022-09-04 07:00 | CA_ITS ---
Transthoracic Echocardiogram Patient (Last, First, Middle): Bola Avelar, Gender: Male Date of : 1945 Age: 77 Procedure Date: 09/04/2022 Procedure Type: Transthoracic Echocardiogram Location: [facility] [place] Height: 180.34 cm Weight: 102.06 kg BSA: 2.22 m2 Heart Rate: 75 bpm BP: 144 / 89 mmHg Mixer Whipped Topping: NESHA Marley MD: Chel LIZAMA [employer] Supervisor: Andrew Price MD Symptoms: cva Study Quality: Adequate ECG Rhythm: Sinus with extra beats Conclusions: - 1. Low normal LV systolic function with impaired relaxation filling pattern with LVEF of 50-55% with mild LVH 2. Normal cardiac valvular Doppler 3. Mildly dilated ascending aorta at 4.1 cm 4. No gross pericardial effusion Findings Left Ventricle Normal left ventricular cavity size. There is mildly increased left ventricular wall thickness. The left ventricular systolic function is low normal. The visually estimated ejection fraction is between 50-55%. Spectral Doppler is indicative of an impaired relaxation filling pattern. E/E prime ratio is between 8 and 15 consistent with indeterminate filling pressures. Atria The left atrium is normal in size. There is no evidence of interatrial shunt. The right atrium is normal in size. Aortic Valve Normal aortic valve structure and function. There is no aortic valve stenosis. There is no aortic valve regurgitation. Mitral Valve Normal mitral valve structure and function. There is trace mitral valve regurgitation. There is no mitral valve stenosis. Pulmonic Valve The pulmonic valve was not well visualized. Tricuspid Valve Likely normal tricuspid valve structure and function. There is trace tricuspid valve regurgitation. Tricuspid regurgitation envelope is inadequate for calculation of right ventricular systolic pressure. Great Vessels The pulmonary artery was not well visualized. There is mild dilatation of the ascending aorta measuring 4.10 cm. Venous The inferior vena cava is normal in size and collapses greater than 50% with inspiration. Pericardium/Pleural There is no evidence of pericardial effusion. Prior Study Comparison No prior study available for comparison. Measurements 2D Linear Measurements IVSd: 1.33 0.6-0.9/0.6-1.0 cm LVIDd: 3.48 3.9-5.3/4.2-5.9 cm LVIDd Index: 1.57 2.4-3.2/2.2-3.1 cm/m2 LVIDs: 2.49 2.0-3.6 cm LVPWd: 1.19 0.7-1.1 cm LA Diam: 3.10 2.7-3.8/3.0-4.0 cm LAIDs Index: 1.40 1.5-2.3 cm/m2 LV Mass: 180.81 67-162/88-224 g LV Mass Index: 81.45 43-95/49-115 g/m2 LVOT Diam: 2.00 3.0+(-)1.3 cm 2D Systolic Function EF 4C: 49.50 >55% EF 2C: 56.10 >55% EF BiP: 54.40 >55% Mitral Valve MV Pk E: 0.55 MV PK A: 0.74 MV Decel Time: 215.00 E/A: 0.70 E'Lateral: 8.27 E'Medial: 5.55 E/E' Med: 9.90 E/E' Lat: 6.60 PHT: 63.00 MVA PHT: 3.49 Decel [place]: 2.55 Aortic Valve AoV Pk Leon: 1.38 AoV Mn Leon: 0.95 AoV VTI: 0.29 AoV Pk Grad: 8.00 Aov Mn Grad: 5.00 DOLORES Cont.VTI: 2.43 LVOT LVOT Pk Leon: 1.08 LVOT Mn Leon: 0.75 LVOT VTI: 0.22 LVOT Pk Grad: 5.00 LVOT Mn Grad: 3.00 LVOT Diam: 2.00 LVOT Area: 3.14 Diastolic Function MV Pk E: 0.55 MV Pk A: 0.74 E/A: 0.70 E'Medial: 5.55 E/E' Med: 9.90 E' Laterial: 8.27 E/E' Lat: 6.60 Right Ventricle TAPSE (mm): 26.30 TVS' Leon: 12.20 Tricuspid Valve RA Press: 3.00 Great Vessels Aorta Sinus of Valsalva: 3.90 2.0-3.5 cm Ao Asc: 4.10 2.1-3.4 cm Pulmonary Valve PV Pk Leon: 0.92 Peak PV Grad: 3.00 Updated in Other Vendor System with Status of Final Andrew Price MD electronically signed on 09/04/2022 3:17:20 PM with status of Final
[2022-09-04 07:12] VITALS: BP 152/96; PULSE 68; RESP 18; TEMP 36.3; O2SAT 98
[2022-09-04 07:33] LABS: Glucose, Whole Blood 223 mg/dL (60-115)
[2022-09-04] MEDS: Insulin Lispro 100 UNIT/ML 3 ML VIAL SUBCUT ×6 (08:11→16:50)
[2022-09-04] MEDS: Clopidogrel Bisulfate 75 MG TABLET PO (08:11)
[2022-09-04] MEDS: Atorvastatin Calcium 80 MG TABLET PO (08:11)
[2022-09-04] MEDS: Aspirin Enteric Coated 81 MG TABLET.DR PO (08:11)
[2022-09-04] MEDS: Insulin Glargine,Hum.rec.anlog 100 UNIT/ML 10 ML VIAL 10 UNIT SUBCUT (08:12)
[2022-09-04] MEDS: 0.9 % Sodium Chloride Flush 3 ML SYRINGE IVFLUSH (08:13)
[2022-09-04 11:30] LABS: Glucose, Whole Blood 299 mg/dL (60-115)
--- NOTE | 2022-09-04 11:58 | P.DS_ITS ---
DS: Providers Provider Date of Service: 09/04/22 Date of admission: 09/02/22 14:57 Primary care physician: Nonstaff Physician Consults: 09/02/22 14:59 Consult to Neurology Routine Consulting Provider: Lizbet Collazo Reason for consultation: CVA, P2 occlusion DS: Diagnosis Discharge Diagnosis (1) Acute CVA (cerebrovascular accident): DS: Summary Hospital Course Hospital Course: Chief Complaint: slurred speech 77-year-old male with history of uncontrolled type 2 diabetes noncompliant with medications, hypertension, and who is a current some day smoker presents to the ED earlier today for evaluation as stroke-like symptoms.? Reports yesterday was noted to have an episode of slurred speech that he feels resolved. In speaking with his family who are present on exam they feel he has had intermittent right sided facial droop and slurred speech for about a month. This morning symptoms recurred with right upper extremity weakness that lasted for several minutes before resolving [place] and again experienced right-sided facial droop and slurred speech which persists in the ER.? He has been noncompliant with follow- up with his PCP and stops taking the metformin and insulin he was previously prescribed.? He is unsure of what his last A1c was but states his glucose levels have been between 300-400.? He also tells me he smokes cigarettes on the weekend when consuming alcohol, he is a social drinker, states 1 pack of cigarettes will last him 1-2 weeks.? He does not use any illicit drugs. On arrival, patient hypertensive to 170/113, vital signs otherwise stable.? Hematology studies are unremarkable.? Renal function is normal, electrolyte levels are normal.? Glucose on arrival 343, given 10 units Humalog with improvement in glucose to 249.? Hemoglobin A1c added on and is 12.5%.? Head CT is negative for any acute intracranial findings but shows stable bone loss of the right posterior parasagittal parietal bone with increased overlying soft tissue seen in the region slightly increased from prior exam possibly related to postsurgical change versus destructive bony process.? Head/neck CTA shows an age-indeterminate occlusion within the left P2 segment as well as a [id number] narrowing involving the M1 segments of both middle cerebral arteries greater on the right side.? No stenosis of the carotid or vertebral arteries. Other stable chronic findings. Hospital course: #Acute CVA manifested by slur speech, mouth droop. Head CT was negative for acute intracranial abnormality but head/neck CTA shows an age-indeterminate occlusion within the left P2 segment as well as [id number] narrowing involving the M1 segments of both middle cerebral arteries greater on the right. Outside of window for tPA. Neuro recommends ASA, Plavix. MRI There is a small acute lacunar infarct involving the left cerebral peduncle. This finding is superimposed upon numerous chronic small vessel ischemic changes primarily involving the periventricular white matter. PT/OT recommmend no further action, but needs outpatient speech. ? # uncontrolled type 2 diabetes--he has not been taking meds for since begining of covid -hemoglobin A1c 12.5% He has been started on Lantus presently 10 and increasing to 20, Humalog pen by sliding scal and Metformin 500 mg bid, he will need a close follow up with PCP # hypertension -hold antihypertensives for now in setting of acute CVA # cigarette smoker -not an everyday smoker, did not require NRT -counseled on smoking cessation Time Spent with Patient Time attestation: Total time managing care of this patient today ____ minutes. Discharge coordination time: Greater than 30 minutes Quality: Safe Use of Opioids Does Pt have an Active Cancer Diagnosis on the Problem List?: No Quality: Stroke Does the patient have a stroke diagnosis?: Yes Reason for No Anti-thrombotic at DC: N/A - Med Ordered Reason for No Anticoagulant at DC: Not indicated Reason Not Initiating IV-Tpa: Contraindicated Reason for No Anti-thrombotic by Day Two: N/A - Med Ordered Reason for No Statin at DC: N/A - Med Ordered Physical Exam Vital Signs: Vital Signs: Last Vital Signs Temp 97.4 F 09/04/22 07:12 Pulse 68 09/04/22 07:12 Resp 18 09/04/22 07:12 BP 152/96 H 09/04/22 07:12 Pulse Ox 98 09/04/22 07:12 O2 Del Method Room Air 09/04/22 07:12 BMI result Body Mass Index 31.4 DS: Data Data Completed and Pending Labs on day of discharge: Laboratory Results - last 24 hr 09/03/22 09/03/22 09/03/22 15:26 20:30 Unknown POC Glucose 174 H 304 H Urine Opiates Screen Not Detected Urine Fentanyl Screen Not Detected Ur Barbiturates Screen Not Detected Ur Phencyclidine Scrn Not Detected Ur Amphetamines Screen Not Detected U Benzodiazepines Scrn Not Detected Urine Cocaine Screen Not Detected U Marijuana (THC) Screen Not Detected 09/04/22 09/04/22 07:22 11:19 POC Glucose 223 H 299 H Urine Opiates Screen Urine Fentanyl Screen Ur Barbiturates Screen Ur Phencyclidine Scrn Ur Amphetamines Screen U Benzodiazepines Scrn Urine Cocaine Screen U Marijuana (THC) Screen Discharge Plan Discharge Anticipated Discharge Date/Time: 09/04/22 11:39 Patient Disposition: Home, Self-Care Discharge Diagnosis: Acute CVA, uncontrolled diabetes [place] [facility] [place] [facility] [place] - 1 Week Physician,Nonstaff [Physician] - 1 Week Discharge Medications: New atorvastatin 80 mg Tablet 80 mg PO DAILY Qty: 30 0RF clopidogrel 75 mg Tablet 75 mg PO DAILY Qty: 30 0RF insulin lispro [Humalog KwikPen Insulin] 100 unit/mL insulin pen 1 sliding scale dose SUBCUT QIDACHS Qty: 15 0RF Rx Instructions: Blood Sugar: <150 - 0 units 151-200 - 2 units 201-250 - 4 units 251-300 - 6 units 301-350 - 8 units >350 - 10 units insulin glargine [Lantus Solostar U-100 Insulin] 100 unit/mL (3 mL) insulin pen 20 unit SUBCUT DAILY Qty: 15 0RF (DME) pen needle, diabetic 32 gauge x 1/4 needle Qty: 100 0RF Rx Instructions: Use four times a day or as directed. metformin 500 mg tablet 500 mg PO BID Qty: 60 0RF amlodipine 5 mg Tablet 5 mg PO DAILY Qty: 30 0RF Protocol: Hold for SBP< HOLD for SBP < : 90 Continued aspirin 81 mg Tablet,Delayed Release (Dr/Ec) 81 mg PO DAILY Discharge Orders: Discharge Order (Routine); Ordered 09/04/22 Ordered By: Brett Perez Diet: Diabetic diet Activity on Discharge: As tolerated Stand Alone Forms: Patient Portal Discharge page Care Plan Goals: Full recovery from stroke and prevent further stroke Health Concerns: Stroke, uncontrolled diabetes Plan of Treatment: Take insulin as recommended take aspirin, plavix, lipitor as recommended to prevent check your sugars before meals and at bedtime Take Norvasc 5 mg daily to control blood pressure You will need to participate speech therapy as outpatient Follow up with a primary care docot in 10 to days Assessment: as above Discharge Date/Time: 09/04/22 17:45
[2022-09-04 12:00] VITALS: BP 138/94; PULSE 82; RESP 20; TEMP 36.1; O2SAT 97
--- NOTE | 2022-09-04 13:03 | MHC.STROKE ---
I MET WITH THE PATIENT AND HIS SO MARY TO DISCUSS HIS DIAGNOSIS AND PROVIDE STROKE EDUCATION. I REVIEWED HIS MRI SCAN AND GAVE HIM A SCREENSHOT OF THE LOCATION OF THE STROKE AND CORRELATING SYMPTOMS. THEY SAID THAT THE SYMPTOMS STARTED ON 09/01/22 AROUND 1800. HIS SPEECH WAS SLURRED FACIAL DROOP AND RIGHT SIDED WEAKNESS. HE WAS OUT OF THE WINDOW FOR TPA-ALTEPLASE. I REVIEWED HIS CT AND CTA RESULTS WELL. MOST OF THE TIME WAS SPENT ON STROKE EDUCATION AND HOW TO CONTROL HIS STROKE RISK FACTORS, WE TALKED ABOUT HIS DIABETES AND A1C, HIS LIPID PANEL, SLEEP APNEA, SMOKING, ETOH USE, AND HIGH BLOOD PRESSURE. HE HAS NOT BEEN COMPLIANT WITH ANY OF HIS MEDICATIONS EXCEPT FOR ASPIRIN. I STRESS THE IMPORTANCE OF MEDICATION COMPLIANCE AND WHY FOR FUTURE STROKE PREVENTION. HE DOES NOT HAVE A FAMILY HISTORY, HE DECLARES HIMSELF TO BE AND BLACK. I REVIEWED WHICH POPULATIONS ARE AT HIGHER RISK AND WHY. HE DOES NOT WANT ANY NICOTINE PATCH, HE SAID HE SMOKES 6 CIGARETTES A WEEK AND DOES NOT INHALE, JUST PUFFS. WE TALKED ABOUT HIS DIET AND HIGH TRIGLYCERIDES, PLUS COOKING OPTIONS AND FOOD OPTIONS. I EXPALINED ALL THE THINGS THAT ARE INCREASING HIS BLOOD SUGAR AND BLOOD PRESSURE. HE ALSO STATED HE HAS SLEEP APNEA. HE SPENDS MOST OF HIS TIME IN [place] AND I GAVE HIS A LIST OF [facility] PCP'S IN THAT AREA. HE WOULD LIKE TO SWITCH FROM HIS [facility]CP. HE WILL REQUIRE OUTPATIENT SPEECH AND THEY ARE GETTING GUIDANCE FROM THE SPEECH THERAPIST. I ANSWERED ALL OF THEIR QUESTIONS AND I WILL CONTINUE TO FOLLOW NEEDED.
[2022-09-04] MEDS: Enoxaparin Sodium 40 MG/0.4 ML SYRINGE SUBCUT (14:10)
[2022-09-04] MEDS: amLODIPine Besylate 5 MG TABLET PO (14:10)
--- NOTE | 2022-09-04 14:12 | MHC.SP.ADU ---
Referring provider: Chel LIZAMA Reason for Referral: Slurred speech Type of Treatment: 69326 Evaluation Speech Sound Production WITH Language Date of Plan of Treatment: 09/04/22 Onset of Symptoms/Illness: 09/02/22 Date Treatment Started: 09/04/22 Medical Diagnosis: Acute CVA Primary Speech Language Diagnosis: R47.1 Dysarthria History Pt is a 77 year old male brought to the ED for evaluation of slurred speech. Pt also reported few moments of right side arm weakness. Pt was admitted for acute CVA, brain MRI 09/03 showing a small acute lacunar infarct involving the left cerebral peduncle. Pt was outside of window for tPA. Medical History: Other: Acute CVA, current smoker on some days, HTN, type 2 diabetes mellitus Respiratory Needs: Room Air Swallowing History: Dysphagia Specific: Within Functional Limits Comments: PROJECT SAFETY MANAGER observed pt eating his lunch. Pt ate bites of his salad- lettuce with croutons. Oral phase was unremarkable. Timely and efficient mastication with good oral clearance. Pt tolerated sips of water with no overt s/s of aspiration. Complete and timely laryngeal elevation. Pt denied having any trouble or having any changes in his swallowing ability. Recommend continue with unmodified diet regular solids, thin liquids, pills whole in liquid. Pre-eval Risk for Aspiration: Neurological Condition Pre-evaluation Dietary Consistencies: Regular Pre-eval Liquid Intake: Thin Pre-eval Medication Intake: Whole with Liquid Reported Speech, Language, Cognition difficulties: Speaking Comments: Pt denied having any trouble finding his words. He reported his only concern to be the slurring of his speech and his pronunciation. Assessment Speech Production: Dysarthric Garbled Slow Slurred Clinical Impression: Impaired Observations: Pt presented with mild to moderate dysarthria. His speech was slurred and garbled, characterized by difficulty coordinating sounds and syllables in multisyllabic words and phrases. Pt was observed to speak slowly as well, which did improve his speech clarity. With successive approximations and repetition, his articulation did improve. Pt was approximately 80% intelligible to the clinician, a trained, but unfamiliar listener. Noted that pt is hard of hearing, has a hearing aid in his right ear. Tests of Speech & Lang Adults: BNT Clinical Impression: Intact Observations: Pt followed simple and multistep commands without difficulty. He appropriately answered yes/no and WH-questions when engaging in conversation. Pt correctly named and identified items in the room. When administered the BNT Short Form, he correctly named 14/15 line images. Pt presented with paraphasias on two instances, but was able to identify that he had made an error and corrected himself. Noted pt named a few items by their plural form (i.e. octopi for octopus and cacti for cactus ). Recommend further testing of receptive and expressive language. Impressions and Recommendations Summary: Impact on Daily Function/Activity Limitations: Daily Activities: Mild Interpersonal Interactions: Mild Education: Employment: Community: Mild Prognosis for Improvement: Good Comment: Post-CVA Recommend outpatient speech therapy for the treatment of mildly to moderately dysarthric speech, further evaluation of receptive and expressive language, post-CVA. Pt expressed interest in participating in speech therapy and improving his speech clarity. Recommendation for Speech Therapy: Further Testing Needed Outpatient Speech Therapy Frequency/Duration: 1x weekly x 12 weeks Date Range for Service Requested: Time to Reassess: 3 months Recommended Referrals to be Discussed with Primary Care Provider: Neurology Discussed w/ Dr. Perez. Dr. Perez to send referral to [facility] for outpatient speech therapy. Patient Education: Completed: Yes Patient/Caregiver Education: Described Results of Evaluation Patient expressed understanding of evaluation Family/Caregivers expressed understanding of results Comments/Barriers to Learning: Services Advisor Clinican/Clinical Fellow: No Supervisory Statement: N/A Speech Language Pathologist: Magaly Johnson M.A., [facility] [place]-PROJECT SAFETY MANAGER
[2022-09-04 15:18] VITALS: BP 172/98; PULSE 74; RESP 20; TEMP 36.7; O2SAT 97
[2022-09-04 15:32] VITALS: BP 142/86
--- NOTE | 2022-09-04 16:11 | MHC.CM.PN ---
EMR reviewed and per MD rounds, pt medically cleared for D/C, family to transport.
[2022-09-04 16:36] LABS: Glucose, Whole Blood 201 mg/dL (60-115)
[2022-09-04] MEDS: metFORMIN HCl 500 MG TABLET PO (16:50)
--- NOTE | 2022-09-06 10:57 | P.CDIM_ITS ---
PROVIDER RESPONSE TEXT: To clarify, the appropriate diagnosis supported by the clinical indicators: No complications of DM QUERY TEXT: PHYSICIAN'S DOCUMENTATION REQUEST Date of Query: 09/04/2022 09:14 AM EDT Patient Name: Bola Avelar Admit Date: 09/02/2022 Dear Brett Perez, A review of the medical record indicates additional documentation may be needed. Please review below and update the documentation accordingly. Clinical Indicators: Per Hospitalist Progress Note 09/03/21: uncontrolled type 2 diabetes--he has not been taking meds for years -hemoglobin A1c 12.5% -diabetic diet -POC glucose -Start Lantus 10, pre meal insulin 5 and SSI POC Glucose on 09/03/22: 386, 391, 233, 304 Please clarify the following regarding the Complications of Diabetes Mellitus (DM): Please describe any known complications (Such as [facility], Coma, CKD including stage, Retinopathy, Neuropathy, Peripheral angiopathy, Arthropath y, Foot ulcer, Hypoglycemia, Hyperglycemia, Gastroparesis, and/or Cellulitis) No complications of DM Other (explain)Clinically unable to determine (explain)Thank you, Angela James RN Use of terms such as suspected, likely, concern for, or probable (associated with a specific diagnosi s that is being evaluated, monitored, or treated as if it exists) are acceptable and can be coded in the inpatient se tting, when documented at the time of discharge. Please use your independent medical judgment in providing your response. THIS QUERY IS PART OF THE PERMANENT MEDICAL RECORD
== END 2022-09-04 17:45 | disposition home or self-care (01) | DRG 66 ==
LOC: HO.ED 13:50 → HO.EDOVER 15:13 → HO.IMC 09-03 05:50
PROVIDERS: Admitting Provider Physician Assistant; Emergency Provider Emergency Medicine; PCP Internal Medicine; Visit Provider Internal Medicine
DX: I63.81 Other cerebral infarction due to occlusion or stenosis of small artery (principal); G83.21 Monoplegia of upper limb affecting right dominant side; F17.210 Nicotine dependence, cigarettes, uncomplicated; Z71.6 Tobacco abuse counseling; R29.700 NIHSS score 0; E11.9 Type 2 diabetes mellitus without complications; I10 Essential (primary) hypertension; R47.81 Slurred speech; Z79.4 Long term (current) use of insulin; Z79.82 Long term (current) use of aspirin; Z79.84 Long term (current) use of oral hypoglycemic drugs; Z79.899 Other long term (current) drug therapy
CPT/HCPCS: 36415; 70450; 70496; 70498; 70551; 80048; 80061; 80307; 82947; 83036; 84484; 85025; 85610; 85730; 92523; 93005; 93306; 97162; 97166; 99285; J1650; Q9957; Q9967

== ENCOUNTER 2022-11-08 12:50 | Outpatient (RCR) | payer MEDICARE, MEDICAID, SELFPAY ==
--- NOTE | 2022-11-21 10:00 | MHC.SP.ADU ---
Referring provider: Luis Alberto Dupree D.O. Reason for Referral: Facial Weakness Following Cerebral Infarction; Assess for Speech Therapy Type of Treatment: 03246 Evaluation Speech Sound Production WITH Language Date of Plan of Treatment: 11/08/22 Onset of Symptoms/Illness: 08/31/22 Date Treatment Started: 11/08/22 Medical Diagnosis: Left Sided CVA, Facial Weakness Following Cerebral Infarction Primary Speech Language Diagnosis: R47.1 Dysarthria Secondary Speech Language Diagnosis: History Bola Avelar is a 77 year old man who in August was admitted to the ED due to right sided weakness, dizziness and numbness. Per patient's report, he was admitted over the weekend and was having multiple tests to determine if he had a stroke, then had a stroke while in hospital. CT scan at the time revealed occlusion of Left P2 segment, and MRI revealed a small acute lacunar infarct involving Left Cerebral Peduncle. Bola reports that he was discharged with therapy services at home through [facility], however they were only able to provide Physical and Occupational Therapy services, and with these services, he was not simultaneously allowed to receive Speech Therapy through an outpatient program. Bola reports that he quickly was able to meet all of the PT and OT goals and was discharged, however he was frustrated by having a delay before receiving Speech Therapy as it was the primary presenting need after his Stroke. Bola reported that he has had a significant right facial droop, which has been steadily improving since his Stroke, slurred speech, disfluent speech, and difficulty with communicating. He reported that he has not had any difficulty with swallowing. He has gained good strength and ability with his right upper and lower extremities, but reports that his handwriting is sloppy but he is able to execute it. Bola wears glasses, reported that he is not sure if some vision issues he is currently having is more related to needing a new prescription versus an issue after his stroke. 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 He is currently living with his girlfriend/partner in [place], although his permanent residence is in [place], [place], with his family having lived for several generations in this area. Medical History: Acid Reflux Diabetes High Blood Pressure Stroke Medication List: Please see medical chart Recent Hospitalizations: Yes: 08/31-09/04/22 [facility]: L sided CVA Respiratory Needs: Room Air Patient Orientation: Alert & Oriented x 4 Social History: Employment Status: Self-Employed Highest level of education obtained: Completed High School/GED and some college Current Living Situation: Currently living with Girlfriend/partner in private Residence in [place]; Permanent residence is in [place], [place]. Assistive Devices in use: Glasses/Contacts Hearing Aids Past Speech Language Therapy: Seen for an assessment during inpatient stay, 08/31-09/04/22. Other Therapies Seen in Current Calendar Year: Occupational Therapy Physical Therapy Swallowing History: Dysphagia Specific: Within Functional Limits Comments: Patient reports no difficulties with swallowing Reported Speech, Language, Cognition difficulties: Understanding, Speaking Comments: Bola presents with a mild dysarthria characterized by imprecise articulation and hesitancies/disfluency when speaking. Bola additionally presented with some difficulty processing more complex or rapid speech. Quality of Life: Excellent Patient Stated Goal of Speech-Language Therapy: Improve intelligibility of connected speech, ongoing assessment of receptive language and cognitive skills. Assessment Speech Production: Dysarthric Nonfluent Clinical Impression: Impaired Observations: Speech/articulation was assessed using informal measures using the Perceptual Dysarthria Evaluation. Bola presents with a mild dysarthria characterized by imprecise articulation, hesitancies and some whole word or phrase repetitions when initiating speech. Patient reports that he has slowed his rate of speech which has helped improve his overall intelligibility. Informal Voice Assessment: Voice Loudness: Normal Voice Nasal Resonance: Normal Voice Oral Resonance: Normal Voice Phonatory-based Quality: Normal Voice Pitch: Normal Voice Other Observations: Clinical Impression: Intact Clinicial Observations: All aspects of voice within functional limits (WFL). Tests of Speech & Lang Adults: BDAE Clinical Impression: Impaired Observations: The Short form of the Sedgwick Diagnositic Aphasia Evaluation was administered. The Sedgwick Diagnostic Aphasia Evaluation (BDAE) is an assessment to evaluate aphasia in individuals ages 16 years and older. Subsection of the exam include: Conversational and expository speech, auditory comprehension, oral expression, reading and writing. The language components of syntax, morphology, phonology and semantics are assessed. On this assessment Bola demonstrated very strong word retrieval/identification skills, mostly fluent narrative language skills with hesitancies secondary to speech needs v. word retrieval (i.e. no evidence of an expressive Aphasia). Speech production evidenced some mild misarticulation errors, primarily on multisyllabic words, and consonant cluster sounds, as well as hesitancies and infrequent part word, whole word and phrase repetitions when initiating speech. On receptive language tasks, Bola occasionally demonstrated mild difficulty with more complex ideational comprehension and with retaining and recalling information from more lengthy paragraph length auditory information. On these aspects of language, it was unclear how much Bola's hearing impairment affects his comprehension of verbally presented information, and is likely a factor. Impressions and Recommendations Summary: Bola Avelar, who is two months status post Left sided CVA, presents today with mild oral motor impairment and? a mild speech dysarthria characterized by imprecise articulation, hesitancies and mild, speech related disfluency.? Bola additionally presented with some difficulty with more advanced auditory processing/comprehension tasks, however difficulty in this area may be due to hearing issues versus cognitive/linguistic impairment post CVA.? This aspect of need indicates further testing of cognitive function for differential diagnosis.? Bola reports a high degree of frustration with his speech, although he has already been using the strategies of slowing his rate of speech and over-articulating certain speech sounds.? It is recommended Bola return for a period of speech therapy to improve his speech intelligibility and communication skills.? Bola was advised that there may be a waiting period before beginning to receive direct speech services due to the current clinic waiting list.? In the interim, he was given a targeted speech activities to practice at home independently while waiting for direct therapy. Impact on Daily Function/Activity Limitations: Daily Activities: Mild Interpersonal Interactions: Mild Education: Employment: Mild Community: Mild Prognosis for Improvement: Good Recommendation for Speech Therapy: Outpatient Speech Therapy Frequency/Duration: One, forty five minute session once weekly, with home carryover activities, for a period of four to six weeks. Date Range for Service Requested: Time to Reassess: PRN Long-Term Goals: Bola will improve speech articulation, fluency and intelligibility of speech to a level of confidence and comfort when communicating with others as determined by objective data and self-report. Short Term Goals: Goal # : [place] will complete a Standardized Cognitive assessment to further evaluate memory, processing, attention, and organization. Goal Status: Goal# : [place] will produce specific labial and lingual movements to strengthen oral articulators with 80% accuracy Goal Status: Goal # : 3. 1 Bola will produce target consonant clusters in initial, medial and final positions in words with 80% accuracy 3.2 Bola will produce target multisyllabic words with 80% accuracy 3.3 Bola will produce speech target sounds in connected speech with 80% accuracy Goal Status: Goal # : Bola will used easy onset or pacing strategy to initiate fluent speech with 80% accuracy. Goal Status: Recommended Referrals to be Discussed with Primary Care Provider: Patient Education: Completed: Yes Patient/Caregiver Education: Described Results of Evaluation Patient expressed understanding of evaluation Patient agrees with goals and treatment plan Comments/Barriers to Learning: Heel Sander Clinican/Clinical Fellow: No Supervisory Statement: N/A Speech Language Pathologist: Batool Boss M.A., CCC-PAINTING DEPARTMENT SUPERVISOR
== END 2022-11-28 13:04 | disposition still patient (30) ==
LOC: HO.SH 12:50
PROVIDERS: Visit Provider Internal Medicine
DX: I63.9 Cerebral infarction, unspecified (principal); R47.9 Unspecified speech disturbances
CPT/HCPCS: 92523

== ENCOUNTER 2023-03-06 14:00 | Outpatient (RCR) | payer MEDICARE, MEDICAID, SELFPAY | END 2023-03-20 13:00 | disposition home or self-care (01) | LOC: HO.SH 14:00 | PROVIDERS: Visit Provider Internal Medicine | DX: R47.1 Dysarthria and anarthria (principal); F41.9 Anxiety disorder, unspecified; F32.9 Major depressive disorder, single episode, unspecified | CPT/HCPCS: 92507 ==

== ENCOUNTER 2023-03-20 14:00 | Outpatient (RCR) | payer MEDICARE, MEDICAID, SELFPAY | END 2023-03-23 14:47 | disposition home or self-care (01) | LOC: HO.SH 14:00 | PROVIDERS: Visit Provider Internal Medicine | DX: F41.9 Anxiety disorder, unspecified (principal); F32.9 Major depressive disorder, single episode, unspecified | CPT/HCPCS: 92507 ==

== ENCOUNTER 2024-04-16 12:38 | Outpatient (RCR) | payer MEDICARE, MEDICAID, SELFPAY ==
--- NOTE | 2024-04-20 15:22 | MHC.SP.ADU ---
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 George attended therapy with this therapist at this clinic for a period of 10 weeks that began in the fall extending to the early winter of 2023, during which he made good progress with oral motor, speech and language skills. George is returning now due to concerns of a setback in his skills, which he reports is due to a side effect from taking Paxlovid in November of this year. George reports that his girlfriend, Anna was diagnosed with Covid, given Paxlovid, and also given a prescription for George from their health care provider, with the recommendation that he take it preventatively as well. George reports he did not have Covid at the time, nor that he has every had this illness, though he indicated that he may have had pneumonia. He took the initial three doses of this medication, and then stopped when he noticed that he had a sudden onset of increased right sided weakness, including increased right facial droop and slurred speech. George reports that he does not believe he had a repeat stroke, and he strongly believes it was the result of taking the medication. He feels that this set back has persisted to date, and it has caused a great deal of distress and frustration for him. George talked at length during this evaluation about his deep seated concerns about the medical system, over prescription of pharmaceuticals and vaccination. He did state that the struggles he has had since his stroke, aging, loss of physical vitality and his distrust of the medical system has led to a pessimistic outlook and depression. He notes that this set back has prevented him from playing guitar and engaging in music, which has been a lifelong passion. He did report that he felt the period of speech therapy he had last year was helpful. 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 He has had a very long and varied career that included service in [employer], [employer] 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 He is a multitalented and multifaceted individual. George splits his time between his home in [place], [place] and his Girlfriend's residence in [place]. He has an adult daughter and many other family members who live in the community, including his mother, who is in her nineties, and still living independently in her home in [place]. Medical History: Arthritis Diabetes Stroke Other: HLD, Hearing Impairment Medication List: amlodipine, glipiyide, atorvostatin, clopidrogrel, Jardiance, aspirin, Vit. 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 Past Speech Language Therapy: January 2023-March 2023. Other Therapies Seen in Current Calendar Year: Occupational Therapy Physical Therapy Reported Speech, Language, Cognition difficulties: Speaking Comments: George presents with a mild dysarthria, an associated mild R facial droop, and a mild anomic aphasia Quality of Life: Excellent Patient Stated Goal of Speech-Language Therapy: Determine therapeutic goals Assessment Speech Production: Dysarthric Clinical Impression: Impaired Observations: George presents with a very mild dysarthria, with most speech sounds well pronounced, with mild occasional slurring of /s/, some cluster sounds and on multisyllabic words. Generally, his impairment is likely most noticeable to a trained listener or family who are well familiar with him. George clearly works very hard to produce clear and articulate speech, and reports that his speech clarity declines when he is tired. Informal Voice Assessment: Voice Loudness: Normal Voice Nasal Resonance: Normal Voice Oral Resonance: Normal Voice Phonatory-based Quality: Normal Voice Pitch: Normal Clinical Impression: Intact Clinicial Observations: George presents with vocal quality and resonance within functional limits. Tests of Speech & Lang Adults: Roscoe Naming Test (BNT) Clinical Impression: Impaired Observations: George completed the short form of the Roscoe Naming Test. He demonstrated mild hesitations on naming a few of the items, with the longest evident on the final prompt (pallet), with some struggle to produce this word. He was otherwise 100% accurate on naming 15 items. In his connected speech, George also demonstrates mild hesitations associated with word retrieval issues. George clearly closely monitors his speech to assure that he is expressing himself clearly, which he reports is effortful and fatiguing at times. Behaviors are consistent with a mild anomic aphasia which is well managed by George. With regard to receptive language, George clearly struggles at times to process what is being said to him, secondary to his limited hearing status. He often turns his good ear to the speaker, and is clearly concentrating on the speaker in order to adequately hear and understand what is being said. George reports that quiet environments and one to one speaking contexts with familiar speakers are optimal hearing contexts for him. He does struggle when there is competing noise and when he is speaking with someone unfamiliar. This level of focused attention is also something that can be fatiguing for him at times. Impressions and Recommendations Summary: George presents with a residual mild dysarthria and associated mild right facial droop, and a mild anomic aphasia. Overall, the impression of this therapist is that he is at a similar level as he was at time of discharge from speech therapy last year, with most of his speech and expressive language needs well managed by him. However, George expresses that he feels he has suffered a setback in his speech skills, and the effort he puts into produce clear and articulate speech is fatiguing and frustrating. He is self conscious about how his speech presents to others and how his abilities have changed. It is recommended George return to speech therapy for a tune up, to review strategies and increase confidence in his speaking and communication skills. Therapy is recommended for a weekly forty five minute session for a period of 6 weeks. George was advised at the conclusion of this evaluation session that there may be a delay getting him in for a period of therapy due to the current waiting list at this clinic and reduced staffing. He was given home practice exercises for the interim at the end of the appointment. Impact on Daily Function/Activity Limitations: Daily Activities: Mild Interpersonal Interactions: Mild Community: Mild Prognosis for Improvement: Excellent Recommendation for Speech Therapy: Outpatient Speech Therapy Frequency/Duration: One forty five minute session weekly Date Range for Service Requested: 6 weeks Time to Reassess: PRN Tailings Man Goals: George will improve his speech articulation fluency and intelligibility of speech to a level of confidence and comfort when communicating with others as determined by objective data and self report. Short Term Goals: Goal # : 1. George will produce specific labial and lingual movements to strengthen oral articulators with 80% accuracy Goal Status: Goal# : 2.1 George will produce /s/ in cluster sounds, medially and in final position in words with 80% accuracy 2.2 Bill will produce consonant clusters in all positions in words with 80% accuracy 2.3 Bill will produce multisyllabic words with 80% accuracy Goal Status: Goal # : 3.1 George will produce fluent and articulate speech in the context of connected speech and conversation as observed in 4 out of 5 contexts. 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
== END 2024-06-04 15:50 | disposition still patient (30) ==
LOC: HO.SH 12:38
PROVIDERS: Visit Provider Registered Nurse
DX: I69.320 Aphasia following cerebral infarction (principal)
CPT/HCPCS: 92522

== ENCOUNTER 2024-07-22 13:00 | Outpatient (RCR) | payer MEDICARE, MEDICAID, SELFPAY ==
--- NOTE | 2024-07-12 10:30 | MHC.SL.SOA ---
Referring Provider: Patrick Montoya NP Reason for Referral: Assess for additional therapy services Date of Plan of Treatment:04/16/24 Onset of Symptoms/Illness:09/24/23 Date Treatment Started:04/16/24 Medical Diagnosis: Primary Speech Language Diagnosis:R47.1 Dysarthria Secondary Speech Language Diagnosis: Number of Authorized Visits Remaining: Authorization End Date: Reason for Visit:[id number] Individual Treatment Other: Subjective:George was on time for today's session and participated well in all aspects of today's session. George had a lot to say, as has been the pattern, but an attempt was made to direct him to reflect on the progress and learned skills he uses manage his speech needs. This lead to a direct question relative to the need to complete the last two sessions of this treatment cycle, as George is at his baseline with his speech and oral motor skills (e.g. relative to management of speech issues). George requested that therapy continue for two more sessions. This note is to serve as documentation of George's progress to date. Objective: George completed exercises for oral motor and speech production. Exercises practiced were given with written directions for follow up/carryover practice at home. Assessment:1. George has demonstrated a preferred set of Oral motor exercises, mostly learned during the last cycle of therapy, and has declined new exercises introduced. When practicing his preferred set of exercises at the top of this session, he demonstrated good labial ROM and strength, though some cuing was given today to stabilize his jaw during these exercises. 2.1: George has produced /s/ in multiple positions in words in s loaded sentences and tongue twisters with > 80% accuracy. 2.2: George has produced r, l, and s consonant clusters in initial and final position in words with >80% accuracle with final /l/ clusters (eg -ble) notably the most challenging to produce at times. 2.3: George has produced multisyllabic words up to five syllables, using syllabication strategies and slowed rate, with >80% accuracy. 3.1: George is generally able to maintain clear and articulate speech using learned strategies and self monitoring in his conversation. There have been some occasional lapses in any session, that are attributable to fatigue or speaking too quickly. George has been noted and reports that he uses his learned oral motor skills to tense and fix the right side of his upper lip when he is speaking to help his intelligibility. He also has developed strong skills with self monitoring his speech and controlling or slowing his rate. Notes: Plan: Goal # : 1. George will produce specific labial and lingual movements to strengthen oral articulators with 80% accuracy Status of Goal: Goal # : 2.1 George will produce /s/ in cluster sounds, medially and in final position in words with 80% accuracy 2.2 George will produce consonant clusters in all positions in words with 80% accuracy 2.3 George will produce multisyllabic words with 80% accuracy Status of Goal: Goal # : 3.1 George will produce fluent and articulate speech in the context of connected speech and conversation as observed in 4 out of 5 contexts. Status of Goal: Goal # : Bola will used easy onset or pacing strategy to initiate fluent speech with 80% accuracy. Status of Goal: Seen by: Graduate/Clinical Fellow: No Supervisory Statement: f_Reg Query Last Value , MHC.AU.SIGNATUR Speech Language Pathologist: Batool Boss M.A., CCC-SPRAY DRIER
--- NOTE | 2024-07-27 11:24 | MHC.SL.SOA ---
Referring Provider: Patrick Montoya NP Reason for Referral: Assess for additional therapy services Date of Plan of Treatment:04/16/24 Onset of Symptoms/Illness:09/24/23 Date Treatment Started:04/16/24 Medical Diagnosis:CVA Primary Speech Language Diagnosis:R47.1 Dysarthria Secondary Speech Language Diagnosis: Number of Authorized Visits Remaining: Authorization End Date: Reason for Visit:[id number] Individual Treatment Other: Subjective:George was on time for today's session. He presented very well today, appearing rested and with no complaints of back or arthritis pain. George was aware this was his final session of the period of tune-up speech therapy for his needs. George had very frequently spoken about a sense of loss related to his stroke and general aging, creating concern for possible overlying depression he may be experiencing, and it was recommended that he consider engaging in counselling for his needs at the end of the session, which he appeared receptive to. He was further giving listings of Stroke Support groups as another possible resource. With regard to this six week session of speech therapy, George has again demonstrated very strong skills and excellent progress. This note is to serve as a discharge summary for Speech Therapy. Objective: George completed exercises for oral motor and speech production. Exercises practiced were given with written directions for follow up/carryover practice at home. Assessment:1.1: George has demonstrated a preferred set of oral motor exercises that were mostly learned during the last cycle of therapy. He has demonstrated 100% accuracy on these exercises, which he reports doing independently at home. 2.1: George has produceed /s/ in multiple positions in words and in s loaded sentences and tongue twisters consistently with >80% accuracy. 2.2: George produced r, l, and s consonant clusters, including final -ble and -ple consonant clusters in words with >80% accuracy. 2.3: George produced multisyllabic words up to 5 syllable words, using syllabication strategies and slowed rate with >80% accuracy. 3.1: George is generally able to maintain clear and articulate speech using learned strategies and self monitoring in his conversation, with self monitoring being a skill that is exceptionally strong. He identifies slowing his rate of speech a primary strategy, along with some oral motor related strategies (e.g. fixing his right upper lip in a slightly raised position when speaking). George was often quite loquacious during these sessions, so conversation was ample, however, much of his conversational topics related directly to his reasons for returning for these sessions (e.g. his perceived set back from taking medication he did not think he needed; frustrations and sense of loss from his stroke and aging). George was given ample feedback about his successes and strengths as it relates to managing any residual dysarthria from his stroke, though advised that setbacks are both possible and normal (e.g. fatigue, illness can be triggers) but can be recovered from. His mastery of strategies to manage his speech issues were amply re-enforced 4. N/A for this cycle of therapy. Notes: Plan: Goal # : 1. George will produce specific labial and lingual movements to strengthen oral articulators with 80% accuracy Status of Goal: Goal # : 2.1 George will produce /s/ in cluster sounds, medially and in final position in words with 80% accuracy 2.2 George will produce consonant clusters in all positions in words with 80% accuracy 2.3 George will produce multisyllabic words with 80% accuracy Status of Goal: Goal # : 3.1 George will produce fluent and articulate speech in the context of connected speech and conversation as observed in 4 out of 5 contexts. Status of Goal: Goal # : Bola will used easy onset or pacing strategy to initiate fluent speech with 80% accuracy. Status of Goal: Seen by: Graduate/Clinical Fellow: No Supervisory Statement: f_Reg Query Last Value , [facility] Speech Language Pathologist: Batool Boss M.A., CCC-SLACKLINE OPERATOR
== END 2024-07-30 09:47 | disposition home or self-care (01) ==
LOC: HO.SH 13:00
PROVIDERS: Visit Provider Registered Nurse
DX: R47.1 Dysarthria and anarthria (principal)
CPT/HCPCS: 92507